=== PATIENT | male | born 1985 | race Two or more races ===

== ENCOUNTER 2023-07-12 05:00 | Day surgery (SDC) | payer OTHER ==
[~2023-07-12] VITALS: Ht 188 cm; Wt 97.5 kg
== END 2023-07-12 13:40 | disposition home or self-care (01) ==
LOC: CIR.AMB 05:00
PROVIDERS: ATTEND Specialist
DX: K40.90 Unilateral inguinal hernia, without obstruction or gangrene, not specified as recurrent (principal); I10 Essential (primary) hypertension; Z20.822 Contact with and (suspected) exposure to COVID-19
CPT/HCPCS: 49505; C1781